=== PATIENT | male | born 1960 | race Caucasian/White ===

== ENCOUNTER 2016-05-13 20:26 | Emergency (ER) | payer BC, OTHER ==
[~2016-05-13] VITALS: Ht 188 cm; Wt 94.6 kg
[~2016-05-13 20:26] MED LIST: CPR500 PO
[2016-05-13 20:48] VITALS: Ht 188 cm; Wt 94.6 kg
[2016-05-13] MEDS ORDERED: PHEN1LIQ93 PO (21:47)
[2016-05-13] MEDS ORDERED: ACETAMINOPHEN 500 MG TAB PO STA (22:00)
[2016-05-13] MEDS ORDERED: OXYMETAZOLINE HCL 0.05% NA SPR 15 ML BTL ONE (22:15)
--- NOTE | 2016-05-13 22:50 | DIAGNOSTIC IMAGING REPORT ---
CHEST ONE VIEW PORTABLE HISTORY: cough, fever COMPARISON: None. FINDINGS: The lungs are clear. Cardiac silhouette is normal in size. No pleural effusions. No pneumothorax. IMPRESSION: No acute process. Electronically signed by: Donnie Gandara M.D. 05/13/2016 10:48 PM Dictated Date/Time: 05/13/2016 10:47 PM
[2016-05-14 00:13] VITALS: TEMP 36.8
[2016-05-14] MEDS ORDERED: AMOX500C3 PO (00:26)
[2016-05-14] MEDS ORDERED: AMOXICILLIN 250 MG CAP PO STA (00:26)
[2016-05-14] MEDS ORDERED: ALBUTEROL HFA 8 GM INHALER INH ONE (00:30)
[2016-05-14] MEDS ORDERED: EMPTY 8 DRAM VIAL ONE (00:32)
[2016-05-14 00:52] VITALS: BP 111/64; PULSE 73; O2SAT 96
--- NOTE | 2016-05-14 02:10 | EMERGENCY ROOM VISIT NOTE ---
History Report prepared by Starla: Filipe Suarez Under the Supervision of: Dr. Lc Harley M.D. First contact with patient: 21:50 Chief Complaint: FEVER Stated Complaint: FEVER,CHILLS,SINUS History of Present Illness The patient is a 55 year old male who presents to the Emergency Room with complaints of a fever that began two days ago. The patient's fever was 38.2 C in triage. The patient began to have a cough and congestion along with his fever at this time. The next day, he started to get diarrhea, chills, nausea, and a sinus drip as well. He noted sinus congestion for 5 days. The patient took Day Quil 7 hours ago. He denies any history of pneumonia. Patient denies LOC, headache, diaphoresis, visual changes, neck pain, chest pain, breathing difficulties, vomiting, abdominal pain, back pain, melena, hematochezia, urinary symptoms, numbness, weakness, lymphadenopathy, rash, or other complaints. Source of History: patient Onset: two days ago Position: other (global) Symptom Intensity: 38.2 C Quality: other (fever) Timing: constant Associated Symptoms: + cough, + diarrhea, + nausea Note: He has sinus congestion. Review of Systems See HPI for pertinent positives and negatives. A total of ten systems were reviewed and were otherwise negative. Past Medical & Surgical Medical Problems: (1) Bronchitis Family History Diabetes mellitus Hypertension Social History Smoking Status: Current Every Day Smoker Alcohol Use: occasionally Drug Use: none Marital Status: Housing Status: lives with significant other Occupation Status: employed Current/Historical Medications Scheduled Amoxicillin (Amoxil), 500 MG PO TID Scheduled PRN [id number] W/ Apap (Vicks Dayquil Severe Cold), 10 ML PO BID PRN for COLD/COUGH Allergies Coded Allergies: Tetracycline (Verified Adverse Reaction, Mild, NAUSEA, 05/04/09) Physical Exam Vital Signs Date Time Temp Pulse Resp B/P Pulse Ox O2 Delivery O2 Flow Rate FiO2 05/14/16 00:52 73 18 111/64 96 05/14/16 00:13 36.8 63 18 123/73 96 Room Air 05/13/16 22:36 83 18 120/84 95 Room Air 05/13/16 20:48 38.2 90 20 161/85 96 Room Air Physical Exam GENERAL: Awake, alert, mildly ill appearing, no distress HEAD: Normocephalic, atraumatic. No edema. EYES: Normal conjunctiva. Sclera non-icteric. EARS: Right TM normal. Left TM normal. NOSE: Mild congestion. OROPHARYNX: Lips, tongue, and mucosa unremarkable. No erythema or exudate. NECK: Supple. No nuchal rigidity. FROM. No adenopathy. Negative jolt accentuation test. RESPIRATORY: CTA bilaterally. No wheezes rales or rhonchi. CARDIAC: Borderline tachycardic rate, normal rhythm. ABDOMEN: Soft, non distended. No tenderness to palpation. NEURO: Normal sensorium. SKIN: No rash or jaundice noted Medical Decision & Procedures ER Provider Diagnostic Interpretation: Radiology results are stated below per my review and radiologist interpretation: CHEST ONE VIEW PORTABLE HISTORY: cough, fever COMPARISON: None. FINDINGS: The lungs are clear. Cardiac silhouette is normal in size. No pleural effusions. No pneumothorax. IMPRESSION: No acute process. Electronically signed by: Donnie Gandara M.D. 05/13/2016 10:48 PM Dictated Date/Time: 05/13/2016 10:47 PM Laboratory Results Test 05/13/16 22:30 Influenza Type A Antigen Neg for Influ A (NEG) Influenza Type B Antigen Neg for Influ B (NEG) Laboratory results reviewed by me Medications Administered Medications (Trade) Dose Ordered Sig/Sydnee Route Start Time Stop Time Status Last Admin Dose Admin Acetaminophen (Tylenol Tab) 1,000 mg NOW STAT PO 05/13/16 22:00 05/13/16 22:01 DC 05/13/16 22:32 1,000 MG Oxymetazoline HCl (Afrin 0.05% Nasal [facility]) 1 sprays NOW ONCE NA 05/13/16 22:15 05/13/16 22:16 DC 05/13/16 22:32 1 SPRAYS Albuterol (Ventolin Hfa Inhaler) 2 puffs NOW ONCE INH 05/14/16 00:30 05/14/16 00:31 DC 05/14/16 00:50 2 PUFFS Amoxicillin (Amoxil Cap) 1,000 mg NOW STAT PO 05/14/16 00:26 05/14/16 00:29 DC 05/14/16 00:49 1,000 MG ED Course 2150: The patient was evaluated in room B7. A complete history and physical exam was performed. 2200: Tylenol Tab 1000 mg PO 2215: Oxymetazoline HCl 1 sprays NA 2322: I reassessed the patient at this time. He is tired. His chest xray was negative. His temperature is 99.7 F. 0026: Amoxicillin 1000 mg PO 0030: Albuterol 2 puffs INH 0050: I reevaluated the patient. Discussed results and discharge instructions: He verbalized understanding and agreement. The patient is ready for discharge. Medical Decision Triage Nursing notes reviewed and agree them. Additional history obtained from his significant other. The patient's history was concerning for fever. Differential diagnosis: Etiologies such as otitis, pharyngitis, pneumonia, influenza,meningitis, urinary tract infection, sinusitis, viral syndrome, as well as others were entertained. Physical examination: As above. No meningeal findings. ER treatment provided: Oral Tylenol Afrin On reassessment the patient felt somewhat better. Ventolin inhaler Amoxicillin Diagnostics interpreted by me: The labs revealed negative flu swab. Urine dip negative. Culture pending. Imaging studies: Chest x-ray as above The patient presented with sinus issues and flulike symptoms. No pneumonia on chest x-ray. He notes a history of sinusitis although has not been treated recently. I discussed treatment with him. He has been progressively worsening , more so over the last 2 days. He has no meningeal findings. The patient elected for initiation of antibiotic treatment. By the evaluation outlined above emergent etiologies such as otitis, pharyngitis, pneumonia, meningitis, urinary tract infection, sepsis, bacteremia, as well as others were deemed relatively unlikely. He'll follow-up closely as an outpatient. The patient and significant other were informed about the findings as listed above. All questions were answered and they were pleased with the treatment. Return instructions were outlined and the patient was discharged in stable condition. Outpatient prescription management: Ventolin MDI Amoxicillin Referral: The patient was referred back to his primary care physician for follow-up in 2 to 3 days for a recheck of the current condition. The chart was completed utilizing [employer] voice recognition software. Grammatical errors, random word insertions, pronoun errors, and incomplete sentences are an occasional consequence of this system due to software limitations, ambient noise, and hardware issues. Any formal questions or concerns about the content, text, or information contained within the body of this dictation should be directly addressed to the physician for clarification. Impression Primary Impression: Flu-like symptoms Additional Impressions: Sinusitis Fever Scribe Attestation The scribe's documentation has been prepared under my direction and personally reviewed by me in its entirety. I confirm that the note above accurately reflects all work, treatment, procedures, and medical decision making performed by me. Departure Information Dispostion Home / Self-Care Prescriptions Amoxicillin (AMOXIL) 500 Mg Cap 500 MG PO TID, #26 CAP Prov: Lc Harley MD 05/14/16 Referrals Lito Watt M.D. (PCP) Forms HOME CARE DOCUMENTATION FORM, IMPORTANT VISIT INFORMATION, Work Instructions Patient Instructions My [facility] Additional Instructions Amoxicillin 500 mg: one capsule 3 times a day for 10 days. All antibiotics can cause diarrhea. If this occurs and you feel worse or it does not resolve in 1- 2 days follow up with your doctor or return to the Emergency Department as this could be signs of serious underlying problems. Any medication can cause an allergic reaction, stop the pills immediately and return to the ER for rash, hives, breathing difficulties, or swelling. Acetaminophen(Tylenol) may be used for fever or pain. Use 1000mg every six hours as needed. Avoid using more than 4000mg in a 24 hour period. (AND/OR) Ibuprofen(Motrin, Advil) may be used for fever or pain. Use 600mg every six hours as needed. Take with food. Avoid using more than 2400mg in a 24 hour period. Do not use 2400mg per day for more than three consecutive days without physician direction. Prolonged inappropriate use can lead to stomach upset or ulcers. Afrin nasal spray: 2-3 sprays to each nostril twice daily as needed for congestion. Do not use for more than 3-4 days because it can lead to worsening rebound congestion. Albuterol Inhaler: Take 2 puffs four times daily for seven days, then as needed. Rest and drink plenty of fluids. Controlling your fever with Tylenol and Ibuprofen as above will make you feel better. Wash your hands after nose blowing, sneezing, or coughing. Most germs are spread through contact, therefore improper hygiene may result in your close contacts and loved ones becoming ill just like you. Return to the ER for severe headache, neck stiffness, chest pain, difficulty breathing, fevers, vomiting, worsening of your condition, or as needed. Follow up with your primary physician this week for a recheck of your current condition. Problem Qualifiers
== END 2016-05-14 00:52 | disposition home or self-care (01) ==
LOC: C.EDB 20:27
DX: R68.89 Other general symptoms and signs (principal); J32.9 Chronic sinusitis, unspecified; R50.9 Fever, unspecified; F17.210 Nicotine dependence, cigarettes, uncomplicated